=== PATIENT | female | born 1995 | race Two or more races ===

== ENCOUNTER 2023-04-05 07:53 | Outpatient (CLI) | payer OTHER ==
--- NOTE | 2023-04-05 12:50 | MRI Report ---
PROCEDURE: FOOT WO - RT INDICATIONS: FOOT PAIN TECHNIQUE: Noncontrast sagittal T1 spin echo and T2 fast spin echo with fat saturation, long-axis T1 spin echo a nd T2 fast spin echo with fat saturation, short-axis proton density fast spin echo and T2 fast spin e cho with fat saturation through the forefoot. COMPARISON: None. FINDINGS: Image quality: Excellent. Bones and joints: No bone marrow contusions or metatarsal stress fractures. The sesamoid bones appe ar in expected positions, without internal edema. No metatarsophalangeal joint degeneration. No int raosseous lesions. Soft tissues: The visualized plantar foot muscles demonstrate normal signal and bulk. Visualized fl exor and extensor tendons appear intact, without tenosynovitis. No soft tissue ganglion cysts or bur apple fluid collections. Sagittal images demonstrate subtle T2 hyperintense signal involving plantar p late of third and fourth MTP joints near their distal insertions. Small amount of fluid is also noted over plantar aspect of fourth MTP joint superficial to the flexor tendon. IMPRESSION: 1. No metatarsal stress fracture. No fracture or dislocation. No suspicious bony lesions. 2. Finding is concerning for low-grade partial-thickness tear involving plantar plate of and third an d fourth MTP joints at their distal insertions. 3. Extensor and flexor tendons are intact. Lisfranc ligament is intact. Reviewed by: Jeevan Washington MD on 04/05/2023 12:49 PM PST Approved by: Jeevan Washington MD on 04/05/2023 12:49 PM PST Station ID: [id number]
== END 2023-04-05 07:54 | disposition home or self-care (01) ==
LOC: DI 07:53
PROVIDERS: ATTEND Student in an Organized Health Care Education/Training Program
DX: S99.911A Unspecified injury of right ankle, initial encounter (principal); M79.671 Pain in right foot; M79.674 Pain in right toe(s); R93.6 Abnormal findings on diagnostic imaging of limbs; R93.89 Abnormal findings on diagnostic imaging of other specified body structures